=== PATIENT | female | born 1955 | race Caucasian/White ===

== ENCOUNTER 2017-11-07 06:26 | Inpatient (IN) | payer BC ==
[2017-11-01 15:52] LABS: BASOPHILS % (AUTO) 0.5 % (0-1); EOSINOPHILS # (AUTO) 0.2 X10'3 (0-0.9); EOSINOPHILS % (AUTO) 2.7 % (0-6); LYMPHOCYTES # (AUTO) 1.7 X10'3 (1.1-4.8); LYMPHOCYTES % (AUTO) 22.5 % (21-51); MEAN CORPUSCULAR VOLUME 88.1 FL (78-98); MEAN PLATELET VOLUME 7.5 FL (7.4-10.4); MONOCYTES # (AUTO) 0.5 X10'3 (0-0.9); MONOCYTES % (AUTO) 6.6 % (2-12); NEUTROPHILS # (AUTO) 5.3 X10'3 (1.8-7.7); NEUTROPHILS % (AUTO) 67.7 % (42-75); PRE OP HEMATOCRIT 38.3 % (35.0-45.0); PRE OP PLATELET COUNT 285 X10'3 (140-440); RED BLOOD COUNT 4.35 X10'6 (4.20-5.60); RED CELL DISTRIBUTION WIDTH 14.1 % (11.5-14.5)
[2017-11-01 16:06] LABS: ALBUMIN 4.1 G/DL (3.4-5.0); ALBUMIN/GLOBULIN RATIO 1.2 (1.1-1.5); ALKALINE PHOSPHATASE 62 IU/L (46-116); BLOOD UREA NITROGEN 25 MG/DL (7-18); BUN/CREATININE RATIO 34.2 (6.6-38.0); CALCIUM 9.2 MG/DL (8.5-10.1); CHLORIDE 106 MMOL/L (99-107); CREATININE 0.73 MG/DL (0.40-0.90); PRE OP ALT 35 U/L (30-65); PRE OP ANION GAP 7 (8-16); PRE OP AST 18 U/L (10-37); PRE OP BILIRUB, TOTAL 0.5 MG/DL (0.0-1.0); PRE OP GLUCOSE 98 MG/DL (70-104); PRE OP POTASSIUM 3.7 MMOL/L (3.4-5.1); PRE OP SODIUM 141 MMOL/L (135-145); TOTAL CARBON DIOXIDE 28.4 MMOL/L (24-32); TOTAL PROTEIN 7.4 G/DL (6.4-8.2); eGFR 81 ML/MIN
[2017-11-07] VITALS (24 sets, daily range): BP systolic 84–145; BP diastolic 50–89
[~2017-11-07] VITALS: Ht 162.6 cm; Wt 89.0 kg
[~2017-11-07 06:26] MED LIST: ACET-812 PO; CHOL100046 PO; IBUP-1985 PO; LOSA50TA3 PO; acetaminophen 325mg tablet PO ONE; ceFAZolin 2gm in dextrose, iso 100 ML IV ONE; famotidine 20mg tablet PO ONE; gabapentin 300mg capsule PO ONE; metoclopramide 5 mg/ml inj IV ONE; oxyCODONE SR 10mg (sust. release) tab PO ONE; ringers solution, lacted 1,000 ML IV SCH; tranexamic acid inj. 1,000 MG in normal saline 100ml IV soln 90 ML IV ONE; vancomycin inj 1,500 MG in normal saline 300ml IV soln IV ONE
[2017-11-07] MEDS ORDERED: scopolamine 1.5mg patch.TD72 TD ONE (06:50)
[2017-11-07] MEDS ORDERED: LIDOcaine 1% (10mg/ml) 2ml vial ONE (07:09)
[2017-11-07] MEDS ORDERED: morphine sulfate /PF 0.5 MG/ML 10mL ampul ONE ×2 (07:32→08:13)
[2017-11-07] MEDS ORDERED: ROPIVAcaine 0.5% (5mg/ml) 30ml vial ONE ×3 (07:32→12:28)
[2017-11-07] MEDS ORDERED: ceFAZolin 1000mg inj ONE (07:32)
[2017-11-07] MEDS ORDERED: ketorolac trometh. 30mg/ml inj. ONE (07:32)
[2017-11-07] MEDS ORDERED: morphine /PF 1mg/ml 10ml inj. ONE (08:16)
[2017-11-07] MEDS ORDERED: MIDAZolam 1mg/ml 10ml vial ONE (08:16)
[2017-11-07] MEDS ORDERED: fentaNYL/PF 50MCG/1 ML 2ML syringe ONE (08:17)
[2017-11-07] MEDS ORDERED: glycopyrrolate 0.2mg/ml inj ONE (08:18)
[2017-11-07] MEDS ORDERED: dexamethasone sod phosphate 10mg/ml inj ONE (08:18)
[2017-11-07] MEDS ORDERED: tetracaine 1% (10mg/ml) pres. free inj. ONE (08:20)
[2017-11-07] MEDS ORDERED: propofol inj 20 ML IV ONE ×3 (08:25)
[2017-11-07] MEDS ORDERED: ondansetron/PF 4mg/2ml inj ONE (08:50)
[2017-11-07] MEDS ORDERED: vancomycin 1,000mg inj ONE (09:00)
[2017-11-07] MEDS ORDERED: Thrombin (Bovine) 5,000 unit vial TP ONE (09:20)
[2017-11-07] MEDS ORDERED: ringers solution, lacted 1,000 ML IV SCH (09:47)
[2017-11-07] MEDS ORDERED: enalaprilat dihydrate 2.5mg/2ml vial IV PRN (09:50)
[2017-11-07] MEDS ORDERED: meperidine/PF 25mg/ml syringe IV PRN ×2 (09:50)
[2017-11-07] MEDS ORDERED: labetalol 20mg/4ml (5mg/ml) syringe IV PRN (09:50)
[2017-11-07] MEDS ORDERED: morphine 4 MG/ML inj SYRINge IV PRN ×3 (09:50→12:45)
[2017-11-07] MEDS ORDERED: ondansetron/PF 4mg/2ml inj IV PRN (09:50)
[2017-11-07] MEDS ORDERED: acetaminophen 325mg tablet PO PRN (12:15)
[2017-11-07] MEDS ORDERED: HYDROmorphone inj. 0.5 MG/0.5 ML DISP.SYRIN IV PRN ×2 (12:15)
[2017-11-07] MEDS ORDERED: oxyCODONE IR 5mg (immed. release) tablet PO PRN (12:15)
[2017-11-07] MEDS ORDERED: magnesium hydroxide 30ml (MOM) UD suspension PO PRN (12:15)
[2017-11-07] MEDS ORDERED: bisacodyl 10mg suppository rectal RC PRN (12:15)
[2017-11-07] MEDS ORDERED: diphenhydrAMINE 25mg capsule PO PRN ×2 (12:15)
[2017-11-07] MEDS ORDERED: MORPHINE 2MG in 2ml NS syringe IV PRN (12:45)
[2017-11-07] MEDS ORDERED: non-formulary drug (Acetaminophen (Tylenol Extra Strength) 2 TABLET) PO PRN (12:45)
[2017-11-07] MEDS ORDERED: tranexamic acid inj. 1,000 MG in normal saline 100ml IV soln 100 ML IV ONE (15:30)
[2017-11-07] MEDS: ondansetron/PF 4mg/2ml inj IV PRN ×2 (16:14→22:58)
[2017-11-07] MEDS: potassium cl 20mEq in 1/2 NS 1,000 ML IV SCH ×2 (16:15→20:07)
[2017-11-07] MEDS: gabapentin 300mg capsule PO SCH ×2 (16:26→20:06)
[2017-11-07] MEDS: acetaminophen 325mg tablet PO SCH ×2 (16:27→20:06)
[2017-11-07] MEDS: ceFAZolin 1GM/D5W- ADD-VANTAGE 50 ML IV SCH (17:09)
[2017-11-07] MEDS ORDERED: vancomycin/NS 1 GM ADD-VANTAGE 250 ML IV SCH (20:00)
[2017-11-07] MEDS ORDERED: sennosides 8.6mg tablet PO SCH (21:00)
[2017-11-08] MEDS: ceFAZolin 1GM/D5W- ADD-VANTAGE 50 ML IV SCH (00:40)
[2017-11-08] MEDS: oxyCODONE IR 5mg (immed. release) tablet PO PRN ×4 (00:41→13:28)
[2017-11-08] MEDS: acetaminophen 325mg tablet PO SCH ×3 (00:42→13:28)
[2017-11-08 02:00] VITALS: BP 104/62
[2017-11-08] MEDS: potassium cl 20mEq in 1/2 NS 1,000 ML IV SCH ×2 (04:13→11:38)
[2017-11-08 06:00] VITALS: BP 117/65
[2017-11-08 06:30] LABS: BASOPHILS % (AUTO) 0.3 % (0-1); EOSINOPHILS % (AUTO) 0.1 % (0-6); HEMATOCRIT 32.5 % (35.0-45.0); LYMPHOCYTES # (AUTO) 1.2 X10'3 (1.1-4.8); LYMPHOCYTES % (AUTO) 9.1 % (21-51); MEAN CORPUSCULAR HEMOGLOBIN 30.2 PG (27.0-31.0); MEAN CORPUSCULAR HGB CONC 33.8 % (33.0-36.5); MEAN CORPUSCULAR VOLUME 89.3 FL (78-98); MONOCYTES # (AUTO) 0.7 X10'3 (0-0.9); MONOCYTES % (AUTO) 5.8 % (2-12); NEUTROPHILS # (AUTO) 10.7 X10'3 (1.8-7.7); NEUTROPHILS % (AUTO) 84.7 % (42-75); PLATELET COUNT 219 X10'3 (140-440); RED BLOOD COUNT 3.64 X10'6 (4.20-5.60); RED CELL DISTRIBUTION WIDTH 14.1 % (11.5-14.5); WHITE BLOOD COUNT 12.7 X10'3 (4.5-11.0)
[2017-11-08] MEDS: gabapentin 300mg capsule PO SCH ×2 (07:06→12:47)
[2017-11-08 07:09] VITALS: BP 99/58
[2017-11-08] MEDS ORDERED: enoxaparin 40mg/0.4ml syringe SQ SCH (08:00)
[2017-11-08] MEDS ORDERED: losartan 50mg tablet PO SCH (08:00)
[2017-11-08] MEDS ORDERED: vitamin D (cholecalciferol) 1,000 unit tablet PO SCH (08:00)
[2017-11-08] MEDS ORDERED: morphine 2 MG/ML inj. syringe IV PRN (09:06)
[2017-11-08 10:00] VITALS: BP 100/54
[2017-11-08] MEDS ORDERED: celeCOXIB 100mg capsule PO SCH (20:00)
[2017-11-09] MEDS ORDERED: acetaminophen 325mg tablet PO PRN (12:15)
== END 2017-11-08 15:30 | disposition home or self-care (01) | DRG 470 ==
LOC: PAS IN 06:26 → EDSTATUS 08:30 → ORTHO 4S 14:20
PROVIDERS: ADMIT Orthopaedic Surgery; ATTEND Orthopaedic Surgery
PROC: 8E0Y0CZ Robotic Assisted Procedure of Lower Extremity, Open Approach (ICD-10-PCS; 2017-11-07)
PROC: 3E0T3BZ Introduction of Anesthetic Agent into Peripheral Nerves and Plexi, Percutaneous Approach (ICD-10-PCS; 2017-11-07)
PROC: 0SRD069 Replacement of Left Knee Joint with Oxidized Zirconium on Polyethylene Synthetic Substitute, Cemented, Open Approach (ICD-10-PCS; principal; 2017-11-07 08:23)
DX: M17.12 Unilateral primary osteoarthritis, left knee (principal); D62 Acute posthemorrhagic anemia; I10 Essential (primary) hypertension; Z79.899 Other long term (current) drug therapy
CPT/HCPCS: 0232T; Z7506; 36415; 80053; 85025; 85610; 85730; 87070; 93005; 97110; 97116; 97161; A6255; A6455; A7000; C1713; C1758; C1776; J0690; J1100; J1650; J1885; J2250; J2274; J2405; J2704; J2765; J2795; J3010; J3370; J3490; J7030; J7070; J7120; Q0163